=== PATIENT | female | born 1990 | race Caucasian/White ===

== ENCOUNTER 2017-05-21 20:40 | Emergency (ER) | payer MEDICAID ==
[2017-05-21 22:06] VITALS: BP 126/84
== END 2017-05-21 22:06 | disposition home or self-care (01) ==
LOC: ED 20:40
DX: F07.81 Postconcussional syndrome (principal)
CPT/HCPCS: Q0162

== ENCOUNTER 2019-07-22 23:13 | Emergency (ER) | payer OTHER ==
[~2019-07-22] VITALS: Ht 160 cm; Wt 73.9 kg
[2019-07-22 23:19] VITALS: Ht 160 cm; Wt 73.9 kg
[2019-07-23 00:43] VITALS: BP 111/70
== END 2019-07-23 00:43 | disposition home or self-care (01) ==
LOC: ED 23:13
DX: S69.91XA Unspecified injury of right wrist, hand and finger(s), initial encounter (principal); Y04.0XXA Assault by unarmed brawl or fight, initial encounter; Y93.89 Activity, other specified; Y92.89 Other specified places as the place of occurrence of the external cause; Y99.0 Civilian activity done for income or pay